=== PATIENT | male | born 1985 | race Two or more races ===

== ENCOUNTER 2017-02-06 06:09 | Emergency (ER) | payer BC ==
[~2017-02-06] VITALS: Ht 175.3 cm; Wt 68.0 kg
[2017-02-06] MEDS ORDERED: predniSONE 20 MG TABLET PO ONE (06:30)
[2017-02-06] MEDS ORDERED: AZITHROMYCIN 250 MG TABLET PO ONE (06:30)
[2017-02-06] MEDS ORDERED: predniSONE 50 MG TABLET ONE (06:40)
[2017-02-06] MEDS ORDERED: predniSONE 10 MG TABLET ONE (06:40)
[2017-02-06] MEDS ORDERED: AZITHROMYCIN 250 MG TABLET ONE (06:40)
--- NOTE | 2017-02-06 06:40 | NUR ---
Patient discharged to home in stable conditon. Written and verbal after care instructions given. Patient verbalizes understanding of instructions.
== END 2017-02-06 06:40 | disposition home or self-care (01) ==
LOC: ER 06:15
DX: J02.9 Acute pharyngitis, unspecified (principal)
CPT/HCPCS: A4663; J7512; Q0144